=== PATIENT | male | born 1945 | race Caucasian/White ===

== ENCOUNTER 2018-03-06 01:45 | Inpatient (IN) | payer OTHER ==
[2018-03-06 02:33] LABS: Bilirubin Negative (Negative); Blood, Urine Large (Negative); Clarity CLOUDY (Clear); Glucose, Urine (Dipstick) Negative (Negative); Leukocyte Large (Negative); Nitrite Negative (Negative); Protein, Urine (Dipstick) 300 mg/dL (Neg-Trace); Specific Gravity, Urine 1.021 (1.002-1.036); pH, Urine 6.5 (5.0-9.0)
[2018-03-06 02:38] LABS: Bacteria/HPF None Seen HPF (None Seen); Hyaline Casts/LPF 0-3 HYALINE CAST LPF (0-3 Hyaline); Pathc Cast-AUWi Flag 0.58 (0-2.49); Squamous Epithelial 0-3 HPF (0-3); Yeast-AUWi Flag 57.7 (0-25.0)
[2018-03-06 02:55] LABS: Yeast-All Forms None Seen HPF (None Seen)
[2018-03-06 03:13] LABS: #Lymphocytes 0.8 thou/uL (1.20-3.40); #Neutrophils 8.2 thou/uL (1.40-6.50); %Basophils 0.1 % (0.0-1.0); %Eosinophils 0.3 % (0.0-10.0); %Monocytes 9.8 % (0.0-10.0); %Neutrophils 81.8 % (42.0-75.0); Hemoglobin 12.5 g/dL (14.0-18.0); Mean Corpuscular HGB CONC 33.4 g/dL (32.0-36.0); Mean Corpuscular Hemoglobin 28.6 pg (27.0-31.0); Mean Corpuscular Volume 85.6 fL (78.0-98.0); Platelet Count 144 thou/uL (130-400); RBC Distribution Width 14.4 % (11.5-14.5); Red Blood Cell (RBC) Count 4.37 mill/uL (4.70-6.10)
[2018-03-06 03:55] LABS: ALT (SGPT) 9 U/L (8-55); AST (SGOT) 15 U/L (5-34); Albumin 3.6 g/dL (3.4-4.8); Alkaline Phosphatase 94 U/L (40-150); Anion Gap 16 mmol/L (10-20); BUN (Urea Nitrogen) 22 mg/dL (8.4-25.7); Calc. Creatinine Clearance 0 mL/min (70-130); Carbon Dioxide 21 mmol/L (23-31); Chloride 103 mmol/L (98-107); Estimated GFR-MDRD 52; Globulin 4.1 g/dL (2.4-3.5); Glucose 128 mg/dL (83-110); Potassium 3.7 mmol/L (3.5-5.1); Protein, Total 7.7 g/dL (5.8-8.1); Sodium 136 mmol/L (136-145)
[2018-03-06] MEDS ORDERED: cefTRIAXone\\ROCEPHIN 1 GM VIAL ONE (04:07)
--- NOTE | 2018-03-06 05:10 | PDOC.FPRHP ---
- History of Present Illness Chief Complaint: Word-finding difficulty, confusion History of Present Illness: 72 yo M from detention coming from [facility]. Patient was found in the shower last night and was refusing to get off the floor, was having word-finding difficulty and was confused. He has a recent history of being admitted for sepsis 2/2 to UTI and has a right nephrostomy tube in place. His speech was clear, but he continues to have word-finding difficulty. He has a difficult time giving his history, but reports hx of T2DM, HTN, atrial fib, and gout. States his right great toe is in pain. Patient reports feeling feverish, decrease appetite, cough , intermittent SOB. Denies chest pain/palpitations/nausea/vom/constipation/ diarrhea/GI bleeding. Patient is a poor historian, he could not report anything about his recent hospital admission. Per the ER note, patient states that the facility was not giving him his keflex, and facility reports that he was refusing to take his keflex. In the ED, CT of his head showed subacute infarct. He was given 2500 ml NS, as well as vancomycin, rocephin 1 g, and ASA 325 mg. - Allergies/Adverse Reactions Allergies Allergy/AdvReac Type Severity Reaction Status Date / Time No Known Allergies Allergy Unverified 03/06/18 05:22 - History PMHx: Difficult to obtain from patient. Recent history of sepsis 2/2 UTI. Patient reports T2DM, HTN, "afib on the left side, v-fib on the right," gout PSHx: nephrostomy tube FHx: Cardiac- father with SD, HTN, Cancer (unknown) in mother, DM both parents Social: denies tobacco, alcohol, or drug use. Imprisoned. - Review of Systems ROS unobtainable: other (Difficult to obtain from patient due to word-finding difficulty) General: reports: fever/chills Eyes: denies: eye pain, vision changes ENT: denies: nasal congestion, rhinorrhea Respiratory: reports: cough, shortness of breath. denies: congestion Cardiovascular: denies: chest pain, palpitation, edema Gastrointestinal: denies: nausea, vomiting, diarrhea, constipation, abdominal pain, GI bleeding Genitourinary: denies: dysuria Skin: denies: rashes, lesions Musculoskeletal: reports: pain (Right great toe). denies: stiffness, swelling Neurological: denies: numbness, weakness Psychological: denies: anxiety, depression, other (denies other psych history) - Vital signs BP: [138/76] HR: [97] RR: [16] Tmax: [99.7] Pox: [95%]% on [RA] Wt: [113 kg] - Physical Exam Constitutional: NAD, well developed HEENT: normocephalic and atraumatic, PERRLA, EOMI, grossly normal vision, grossly normal hearing, MMM, oropharynx clear Neck: supple -Neck: +LAD Heart: RRR, normal S1/S2 Lungs: CTAB, no respiratory distress, no wheezing Abdomen: soft, non-tender, bowel sounds present, no masses/distention Musculoskeletal: normal structure -Musculoskeletal: Right great toe very TTP, no erythema appreciated Neurological: CN II-XII intact -Neurological: Word finding difficulty Skin: no rash/lesions, good turgor, capillary refill <2 seconds Heme/Lymphatic: no unusual bruising or bleeding, no purpura Psychiatric: other (Patient has strange affect, difficulty with word-finding. Concerned that some malingering involved. Patient tries to use medical terms and uses them incorrectly.) FMR H&P: Results - Labs Result Diagrams: 03/06/18 02:53 03/06/18 02:53 Lab results: WBC 10.0 thou/uL (4.8-10.8) 03/06/18 02:53 Hgb 12.5 g/dL (14.0-18.0) L 03/06/18 02:53 Hct 37.4 % (42.0-52.0) L 03/06/18 02:53 MCV 85.6 fL (78.0-98.0) 03/06/18 02:53 Plt Count 144 thou/uL (130-400) 03/06/18 02:53 Neutrophils % 81.8 % (42.0-75.0) H 03/06/18 02:53 Sodium 136 mmol/L (136-145) 03/06/18 02:53 Potassium 3.7 mmol/L (3.5-5.1) 03/06/18 02:53 Chloride 103 mmol/L (98-107) 03/06/18 02:53 Carbon Dioxide 21 mmol/L (23-31) L 03/06/18 02:53 BUN 22 mg/dL (8.4-25.7) 03/06/18 02:53 Creatinine 1.35 mg/dL (0.7-1.3) H 03/06/18 02:53 Glucose 128 mg/dL (83-110) H 03/06/18 02:53 Lactic Acid 3.1 mmol/L (0.5-2.2) H 03/06/18 02:53 Calcium 10.0 mg/dL (7.8-10.44) 03/06/18 02:53 Total Bilirubin 3.0 mg/dL (0.2-1.2) H 03/06/18 02:53 AST 15 U/L (5-34) 03/06/18 02:53 ALT 9 U/L (8-55) 03/06/18 02:53 Alkaline Phosphatase 94 U/L (40-150) 03/06/18 02:53 Serum Total Protein 7.7 g/dL (5.8-8.1) 03/06/18 02:53 Albumin 3.6 g/dL (3.4-4.8) 03/06/18 02:53 Urine Ketones 15 mg/dL (Negative) H 03/06/18 02:00 Urine Blood Large (Negative) H 03/06/18 02:00 Urine Nitrite Negative (Negative) 03/06/18 02:00 Ur Leukocyte Esterase Large (Negative) H 03/06/18 02:00 Urine RBC 11-20 HPF (0-3) H 03/06/18 02:00 Urine WBC Greater Than 50-TNTC HPF (0-3) H 03/06/18 02:00 Ur Squamous Epith Cells 0-3 HPF (0-3) 03/06/18 02:00 Urine Bacteria None Seen HPF (None Seen) 03/06/18 02:00 FMR H&P: A/P - Problem List (1) UTI (urinary tract infection) Current Visit: Yes Status: Acute (2) Acute encephalopathy Current Visit: Yes Status: Acute Code(s): G93.40 - ENCEPHALOPATHY, UNSPECIFIED (3) HTN (hypertension) Current Visit: Yes Status: Chronic Code(s): I10 - ESSENTIAL (PRIMARY) HYPERTENSION (4) Elevated bilirubin Current Visit: Yes Status: Acute Code(s): R17 - UNSPECIFIED JAUNDICE (5) Gout Current Visit: Yes Status: Acute Code(s): M10.9 - GOUT, UNSPECIFIED (6) Diabetes type 2, uncontrolled Current Visit: Yes Status: Chronic Code(s): E11.65 - TYPE 2 DIABETES MELLITUS WITH HYPERGLYCEMIA (7) Constipation Current Visit: Yes Status: Chronic Code(s): K59.00 - CONSTIPATION, UNSPECIFIED - Plan 72 yo M presents with concern for stroke and UTI #UTI s/p nephrostomy placement -UTI present, patient has not been taking antibiotic since discharge -Pulse >90, other vitals WNL. -In ED: given 2500 ml NS, as well as vancomycin, rocephin 1 g -LA 3.1 -Pus on nephrostomy tube, culture drawn -Blood cultures drawn and pending -Urine culture and G stain pending -Continue on vanc and rocephin -request records -strict I/Os #Acute Encephalopathy, possibly 2/2 Stroke -Ct head +, report pending -MRA pending, NPO until then -Admit to Stroke Obs -NIH of 1, due to word finding difficulties -Cardiac echo -lipid panel pending #HTN -Carvedilol, furosemide -Patient possibly has heart failure, request records #Elevated bilirubin -Fractionated bili pending -LFTs normal #Gout -Tylenol for pain -Patient has a slight elevation in his Creatinine, so holding NSAIDS at this time #DMT2 -glipizide -SSI #Constipation -docusate #GERD -Ranitidine Dispo: >2 midnights Diet: NPO until after MRA Ppx: lovenox FMR H&P: Upper Level - Pertinent history 72M with history of recent nephrostomy tube placed for nephrolithiasis present for altered mentation. He is unreliable historian, saying things such as "I have afib in the right heart and vfib in the left heart". He was seen at approximately 2100 hour the previous day on the ground, unknown when seen last normal. He was found to be altered in speech. [facility] bed was full so he was brought to [facility]. In ER, he had CT, official read pending, that shows possible rt. occipital hypoechogenic area, possibly representing a stroke. He was seen to have pus in his nephrostomy tube and UA found 50+ WBC with LE. He was noted to have isolated hyperbilirubinemia without elevated LFT. He incidentally complained of great right toe pain. - Pertinent findings Gen: Awake, grossly oriented but nonsensical at time HEENT: Normocephalic. Nystagmus with leftward gaze. Midline trachea. CV: RRR with no m/g/r Resp: CTA bilat GI: Normoactive, not tender Ext: No edema Neuro: Limited due to patient being in restraint. Normal tone. No focal weakness Msk: Pain on palpation of right great toe : Nephrostomy tube now draining clear urine Derm: Mild redness around nephrostomy site - Plan Date/Time: 03/06/18 0510 I, [Kd Hutchison], have evaluated this patient and agree with findings/plan as outlined by internal control consultant resident. Pertinent changes/additions are listed here. 1. CVA/TIA: - Await official read - Lipid, MRA head/neck, cardiac echo - Optimize medical management with statin, aspirin as appropriate - Permissive HTN for today, BP control tomorrow - Patient has no obvious lesion besides nystagmus. Consider that CT scan may have reflected old stroke, unrelated to today's visit 2. UTI - UA positive. Culture and gram stain pending - Start on ceftriaxone and vanc. - May account for unusual behavior 3. Acute Gout - Elevated uric acid from 2 days prior and history/physical suggest gout - Has increased Cr, so will go with tylenol for now, may start NSAID when kidney function improved 4. Isolated hyperbilirubinemia - Ordered fractionated bilirubin - LFT normal and no pain, so infectious etiology/obstruction is less likely 5. DM2, HTN, GERD - Continue home medication
[2018-03-06] MEDS ORDERED: Gentamicin Sulfate 415 MG in Sodium Chloride 0.9% 100 ML IVPB SCH (05:30)
[2018-03-06] MEDS ORDERED: Vancomycin HCl 1.5 GM in Sodium Chloride 0.9% 250 ML 300 ML IVPB SCH (05:45)
[2018-03-06] MEDS ORDERED: SODIUM CHLORIDE 0.9% IVPB SCH (07:00)
[2018-03-06] MEDS ORDERED: GENTAMICIN SULFATE IVPB SCH (07:00)
[2018-03-06] MEDS ORDERED: Dextrose 5% in Water 1,000 ML IV PRN (07:29)
[2018-03-06] MEDS ORDERED: Dextrose 50% Abboject 50 ML SYRINGE SLOW IVP PRN (07:29)
[2018-03-06] MEDS ORDERED: cefTRIAXone Sodium 1 MG in Syringe 0 ML IVPB SCH (07:29)
[2018-03-06] MEDS ORDERED: Acetaminophen 325 MG TAB PO PRN (07:29)
[2018-03-06] MEDS ORDERED: Calcium Carbonate 500 MG ChewTAB PO PRN (07:29)
[2018-03-06 08:42] LABS: Lactic Acid 1.2 mmol/L (0.5-2.2)
[2018-03-06 08:48] LABS: Bilirubin, Direct 0.9 mg/dL (0.1-0.3); Bilirubin, Total 1.7 mg/dL (0.2-1.2)
[2018-03-06 09:17] VITALS: BMI 32.5
--- NOTE | 2018-03-06 09:20 | CT ---
PRELIMINARY REPORT/[facility]/EMERGENCY AFTER HOURS PROCEDURE: EXAM: CT Head Without Contrast EXAM DATE/TIME: 03/06/2018 2:26 AM CLINICAL HISTORY: 72 years old, male; Signs and symptoms; Altered mental status/memory loss; Confusion or disorientatio n; Patient HX: Ams/confusion TECHNIQUE: Axial computed tomography images of the head/brain without contrast. COMPARISON: No relevant prior studies available. FINDINGS: Brain: No acute intracranial hemorrhage or mass effect. There is decreased attenuation in the periventricular white matter, likely from microvascular disease . Large low attenuation area in the left occipital lobe. This may represent an old infarct, a subacute infarct might also be considered, please correlate clinically. Acute infarct, less than 24 hours in a ge, would be unlikely. No definitive acute infarct by CT. MRI could be more sensitive/specific for de tection, and also for distinguishing between old and subacute infarcts, as clinically directed. Ventricles: Ventricle size is normal for age. Bones/joints: No definite acute skull fracture. Sinuses: Included paranasal sinuses are essentially clear. Mastoid air cells: No significant acute finding. Soft tissues: Normal. Vasculature: Vascular calcifications noted in the internal carotid and vertebral basilar systems. IMPRESSION: 1. No acute intracranial bleed or mass effect. 2. Large low attenuation area in the left occipital lobe. This may represent an old infarct, a subacu te infarct might also be considered, please correlate clinically. 3. No definitive acute infarct by CT, see above discussion. Thank you for allowing us to participate in the care of your patient. Dictated and Authenticated by: Efra Anand MD 03/06/2018 3:23 AM Central Time ([place] & [place]) FINAL REPORT EMERGENT AFTER HOURS CT OF THE BRAIN WITHOUT CONTRAST: FINDINGS/IMPRESSION: I agree with the findings and impression given in the preliminary report per [facility] physician. There is confluent hypodensity in the left occipital lobe. This may represent a remote or subacute infarct ion. Correlate with symptoms. MRI of the brain may be necessary for better evaluation. POS: [facility]
[2018-03-06] MEDS: Enoxaparin Sodium 40 MG/0.4 ML SYRINGE SC SCH (09:41)
--- NOTE | 2018-03-06 10:01 | RAD ---
SINGLE VIEW OF THE CHEST: COMPARISON: None. HISTORY: Altered mental status. FINDINGS: Single view of the chest shows a normal sized cardiomediastinal silhouette. There is no evidence of c onsolidation, mass, or pleural effusion. The bones are unremarkable. IMPRESSION: No evidence of acute cardiopulmonary disease. POS: [facility]
--- NOTE | 2018-03-06 14:11 | MRI ---
MRA OF THE NECK WITHOUT CONTRAST: HISTORY: Found lying in shower yesterday unable to get up. Concern for stroke with right-sided weakness. TECHNIQUE: An MRA of the neck was performed without contrast using 2D [id number] imaging. FINDINGS: The common carotid arteries are normal in caliber without obvious irregularity to suggest significant atherosclerotic disease. These branch into normal-caliber internal and external carotid arteries wi thout significant irregularity of the proximal internal carotid arteries. The vertebral arteries are normal in appearance without significant narrowing or irregularity to sugg est atherosclerotic disease. IMPRESSION: No significant carotid or vertebral anomaly in the neck. POS: [facility]
--- NOTE | 2018-03-06 14:24 | MRI ---
MRA MAGNETIC RESONANCE ANGIOGRAM HEAD NONCONTRAST: DATE: 03/06/2018. HISTORY: A 72-year-old male with altered mental status and left occipital lobe infarction. TECHNIQUE: 3D [id number] MRA acquired in multiple axial slabs through the [employer]. Source images a nd 3D MIP reconstructions obtained. FINDINGS: There is decreased signal intensity involving approximately 2 or 3 cm of the length of the left intra cranial vertebral artery. There is good flow-related signal in the P1 segment of the left RADIOLOGY RN. The left P2 segment has decreased signal intensity, and the flow-related signal of the left P3 segment an d distal to it, is absent. There is no left-sided posterior communicating artery. There is a patent right posterior communicati ng artery and an anterior communicating artery. The bilateral carotid siphons; the A1 and A2 segment s, and the M1 segments, of the anterior and middle cerebral arteries, and their proximal branches, de monstrate flow-related signal. Basilar artery and intracranial right vertebral artery, right posteri or cerebral artery, and bilateral superior cerebellar arteries, have flow-related signal proximally. IMPRESSION: 1. Please note that an MRA of the head is considered incomplete without an accompanying MRI of the b rain. 2. Occlusion of the P3 and P4 segments of the left posterior cerebral artery, presumably due to thro mbosis, which is apparently the cause of the left occipital infarction. 3. Attenuation of the signal of a segment of the intracranial left vertebral artery. It is uncertai n whether this represents partial occlusion and narrowing due to thrombosis, or is atherosclerotic st enosis, or artifact. POS: [facility]
[2018-03-06] MEDS: glipiZIDE 5 MG TAB PO SCH (21:56)
[2018-03-07] MEDS: cefTRIAXone\\ROCEPHIN 1 GM in Sodium Chloride 0.9% 100 ML IVPB SCH (05:12)
[2018-03-07 06:34] LABS: #Eosinphils 0.1 thou/uL (0.0-0.7); #Lymphocytes 0.8 thou/uL (1.20-3.40); #Monocytes 0.8 thou/uL (0.11-0.59); #Neutrophils 6.2 thou/uL (1.40-6.50); %Basophils 0.1 % (0.0-1.0); %Eosinophils 0.8 % (0.0-10.0); %Lymphocytes 10.1 % (21.0-51.0); %Monocytes 9.7 % (0.0-10.0); %Neutrophils 79.3 % (42.0-75.0); Hemoglobin 9.8 g/dL (14.0-18.0); Mean Corpuscular Volume 84.8 fL (78.0-98.0); Mean Platelet Volume 10.4 fL (7.4-10.4); Platelet Count 142 thou/uL (130-400); RBC Distribution Width 14.4 % (11.5-14.5); Red Blood Cell (RBC) Count 3.49 mill/uL (4.70-6.10); White Blood Cell (WBC) Count 7.8 thou/uL (4.8-10.8)
[2018-03-07 06:49] LABS: Cardiac Risk 3.3 (Less than 4.5)
--- NOTE | 2018-03-07 07:17 | HP ---
ADDENDUM: Please see the note from Dr. Ann, for which I agree. The patient was seen, evaluated, examined, and discussed with residents by bedside. HISTORY OF PRESENT ILLNESS: This is a 72-year-old gentleman coming in from senior care in [place] because [facility] System apparently was full and had no beds. Not a good historian. Has a right-sided nephrostomy tube that the patient states was placed 2 months ago, but the ER doctor was able to get some kind of report that recently was in some hospital and was supposed to be on Keflex because of this. It is unclear why it was even placed and it is unclear which hospitalization he had this placed at and what the issue is with the Keflex. It sounds like he is supposed to taking it and was not. It is unclear why. It comes in with altered mental status, some confusion. It sounds like he was found just sitting in the shower and refusing to get up and so they brought him to the emergency room. Some word-finding difficulty, although not actual slurred speech. No other focal neurologic symptoms though. CT of the head showed left parieto-occipital area that looks old and not necessarily new and certainly not acute in the last 24 hours like the symptoms would indicate. Other than that, he is an extremely poor historian. It is unclear if this is from altered mental status or this is baseline. It does sound like maybe he has had some cardiac problems such as atrial fibrillation, but really unclear. PAST MEDICAL HISTORY: All per the residents history and physical. ALLERGIES: ALL PER THE RESIDENTS HISTORY AND PHYSICAL. MEDICATIONS: All per the residents history and physical. REVIEW OF SYSTEMS: All per the residents history and physical. PHYSICAL EXAMINATION: GENERAL: On exam, no apparent distress. Not slurring speech, but had a hard time in really answering questions at times, seems a little bit confused. Often had his eyes closed and some word-finding difficulty. Could not remember names of cities where he is from and things like that. Could not remember what city he is now living in senior care. Could not remember what hospital he was in, things like that. No other focal neurologic symptoms. HEENT: Conjunctivae are not pale. Sclerae are anicteric. Oropharynx is clear, moist. NECK: No lymphadenopathy, thyromegaly, or bruits. CHEST: Clear. CARDIAC: Regular rate and rhythm currently. EXTREMITIES: Show no edema. Any touching of the feet, he cries out in pain, but especially around the right great toe, although no major joint effusion or erythema. NEUROLOGIC: Difficult as he just did not want to cooperate or understand what I was asking him to and then he is also in the zip-ties from the senior care, but could squeeze both hands equally. Again, really was not cooperating on the lower extremity exam. LABORATORY DATA: Lab workup, really not that remarkable. White count, not that elevated, did have dirty urine with nephrostomy tube. ASSESSMENT AND PLAN: 1. Urinary tract infection, we will culture. Get him on antibiotics. 2. Altered mental status ? unfortunately, we do not really know baseline. It is unclear if this is all from the urinary tract infection or if this could represent something like a stroke, although the CT will make it look like it is subacute. We will get an MRI to further evaluate. 3. Numerous other medical problems including hypertension, gout, diabetes. We will continue home medications for those and just kind of watch his mental status. Not a good candidate at all for tPA as this just does not seem like an acute stroke. It is unclear even when these symptoms started. Job ID: [id number]
--- NOTE | 2018-03-07 08:17 | PDOC.FM ---
- Subjective Subjective: 72 yo M seen this morning at bed side. He is resting comfortably, however does not remember the past few days. He complains of b/l ankle pain. Otherwise no complaints, no acute events over night. - Objective MAR Reviewed: Yes Vital Signs & Weight: Vital Signs (12 hours) Temp Pulse Resp BP Pulse Ox 03/07/18 08:00 100.0 F H 97 22 H 186/86 H 96 03/07/18 04:00 100.1 F H 86 19 141/60 H 96 03/07/18 00:47 151/88 H 03/07/18 00:00 99.1 F 88 19 193/84 H 96 03/06/18 20:45 96 Weight Weight 111.901 kg Result Diagrams: 03/07/18 05:23 03/06/18 02:53 <Will Chiu - Last Filed: 03/07/18 08:11> - Objective Vital Signs & Weight: Vital Signs (12 hours) Temp Pulse Resp BP Pulse Ox 03/07/18 08:00 100.0 F H 97 22 H 186/86 H 96 03/07/18 04:00 100.1 F H 86 19 141/60 H 96 03/07/18 00:47 151/88 H 03/07/18 00:00 99.1 F 88 19 193/84 H 96 Weight Weight 111.901 kg Result Diagrams: 03/07/18 05:23 03/06/18 02:53 <Devyn Apple - Last Filed: 03/07/18 09:37> Phys Exam - Physical Examination Constitutional: NAD HEENT: PERRLA, moist MMs Neck: no JVD Respiratory: clear to auscultation bilateral Cardiovascular: RRR, no significant murmur Gastrointestinal: non-tender, no distention, positive bowel sounds Musculoskeletal: no edema TTP and with ROM ankle and 1st toe b/l Neurological: normal sensation, moves all 4 limbs Intention tremor with nose to finger test R worse than L Psychiatric: A&O x 3 Skin: no rash, normal turgor <Will Chiu - Last Filed: 03/07/18 08:11> Dx/Plan (1) CVA (cerebral vascular accident) Code(s): I63.9 - CEREBRAL INFARCTION, UNSPECIFIED Status: Acute Qualifiers: CVA mechanism: thrombosis Precerebral and cerebral artery: posterior cerebral artery Laterality of affected vessel: left Qualified Code(s): I63.332 - Cerebral infarction due to thrombosis of left posterior cerebral artery (2) Acute encephalopathy Code(s): G93.40 - ENCEPHALOPATHY, UNSPECIFIED Status: Resolved (3) Elevated bilirubin Code(s): R17 - UNSPECIFIED JAUNDICE Status: Acute (4) Gout Code(s): M10.9 - GOUT, UNSPECIFIED Status: Acute Qualifiers: Presence of tophus: without tophus (5) Diabetes type 2, uncontrolled Code(s): E11.65 - TYPE 2 DIABETES MELLITUS WITH HYPERGLYCEMIA Status: Chronic (6) HTN (hypertension) Code(s): I10 - ESSENTIAL (PRIMARY) HYPERTENSION Status: Chronic - Plan Plan: 1. Acute L posterior cerebral artery CVA - Patient is improving, though does appear to have persistent cerebellar deficiency. - Start Lipitor - Questionable hx of afib. Patient states that he may have been told that in the past, however [facility] unit does not have that hx. NSR during hospitalization thus far. - consider starting plavix, will wait for neuro recommendations - echo shows EF of 55-60 and dCHF, otherwise no obvious source of thrombus 2. HTN - restart home meds this am 3. Hx of Gout - possibly having gout flair at this time, uric acid pending - consider starting indomethacin 4. L nephrostomy tube - secondary to previous obstructing stone. Placed on 02/13 - urine clear at this time. Plan to dc abx 5. Hyperbilirubinemia - improved, however still elevated. All other LFT are WNL. Possible [place] 6. GERD - home meds 7. DM2 - home meds - low carb diet - accucheck achs - controlled BG 8. ISMAEL - likely dt low volume, repeat BMP pending. Dispo: Patient is currently stable, work to maximize medical management. Likely ready to dc tomorrow <Will Chiu - Last Filed: 03/07/18 08:11> Attending Addendum - Attending Addendum Date/Time: 03/07/18 7508 I personally evaluated the patient and discussed the management with Dr. Chiu. I agree with the History, Examination, Assessment and Plan documented above with any addition or exceptions noted below. Patient denies complaints this morning but reports he does not remember much over the last few days. MRA showed thrombosis and possible cerebral infarct. MRI brain pending. Neuro consult as well as stroke team. Await their recommendations on need for possible DAPT. Starting statin therapy. Continue Rocephin until cultures result as PCT elevated somewhat. <Devyn Apple - Last Filed: 03/07/18 09:37>
[2018-03-07] MEDS: Acetaminophen 325 MG TAB PO SCH (09:34)
[2018-03-07] MEDS: Furosemide 40 MG TAB PO SCH (09:34)
[2018-03-07] MEDS: glipiZIDE 5 MG TAB PO SCH ×2 (09:34→20:58)
[2018-03-07] MEDS: Carvedilol 6.25 MG TAB PO SCH (09:35)
[2018-03-07] MEDS: Aspirin 81 mg Enteric Coated Tablet PO SCH (09:35)
[2018-03-07] MEDS: Docusate 100 MG CAP PO SCH (09:35)
[2018-03-07] MEDS: Enoxaparin Sodium 40 MG/0.4 ML SYRINGE SC SCH (09:36)
[2018-03-07 11:12] LABS: Anion Gap 16 mmol/L (10-20); BUN (Urea Nitrogen) 19 mg/dL (8.4-25.7); Calc. Creatinine Clearance 104 mL/min (70-130); Carbon Dioxide 20 mmol/L (23-31); Chloride 103 mmol/L (98-107); Estimated GFR-MDRD 71; Glucose 70 mg/dL (83-110); Potassium 3.2 mmol/L (3.5-5.1); Sodium 136 mmol/L (136-145); Uric Acid 7.3 mg/dL (3.5-7.2)
[2018-03-07] MEDS ORDERED: Indomethacin 25 mg Capsule PO SCH (15:45)
[2018-03-07] MEDS ORDERED: Clopidogrel Bisulfate 75 MG TAB PO SCH (16:30)
--- NOTE | 2018-03-07 19:51 | MRI ---
MRI BRAIN: 03/07/2018 PROVIDED CLINICAL HISTORY: Stroke. COMPARISON: CT examination dated 03/06/2018. FINDINGS: The ventricular system appears unchanged in size and morphology. There is confluent signal alteratio n on fluid-sensitive sequences, involving the medial aspect of the left occipital lobe, extending int o the splenium of the corpus callosum, left of midline. Similar foci of signal alteration are seen w ithin the left thalamus and the left centrum semiovale, anteriorly. These demonstrate corresponding restricted diffusion. There are, additionally, areas of somewhat punctate FLAIR and T2 signal altera tion involving the cerebral white matter bilaterally, near the vertex, which demonstrate increased si gnal intensity on the diffusion weighted image, but not definitely diffusion restriction on the ADC m ap. There is diminished signal intensity on the gradient echo sequence involving the left occipital signa l abnormality, suggesting associated petechial hemorrhage. There is no evidence for a mass-producing hemorrhage. Appropriate flow voids are seen within the major intracranial vessels. The extracranial soft tissues and calvarial marrow signal appear unremarkable. IMPRESSION: Findings compatible with recent infarction involving the left occipital lobe, left corpus callosum, l eft thalamus, and left central semiovale, as described above. Signal alteration involving the occipi thony component of this infarct demonstrates signal loss on gradient echo images, suggesting associated petechial hemorrhage. POS: [facility]
[2018-03-07] MEDS: Atorvastatin Calcium 40 MG TAB PO SCH (20:58)
[2018-03-07] MEDS: Indomethacin 25 mg Capsule PO SCH (20:58)
[2018-03-08] MEDS: cefTRIAXone\\ROCEPHIN 1 GM in Sodium Chloride 0.9% 100 ML IVPB SCH (04:16)
[2018-03-08 05:46] LABS: #Eosinphils 0.2 thou/uL (0.0-0.7); #Lymphocytes 0.7 thou/uL (1.20-3.40); #Monocytes 0.5 thou/uL (0.11-0.59); #Neutrophils 3.5 thou/uL (1.40-6.50); %Basophils 0.2 % (0.0-1.0); %Eosinophils 3.5 % (0.0-10.0); %Lymphocytes 15.1 % (21.0-51.0); %Monocytes 9.3 % (0.0-10.0); %Neutrophils 71.9 % (42.0-75.0); Hemoglobin 9.9 g/dL (14.0-18.0); Mean Corpuscular HGB CONC 32.6 g/dL (32.0-36.0); Mean Corpuscular Hemoglobin 27.7 pg (27.0-31.0); Mean Corpuscular Volume 84.9 fL (78.0-98.0); Mean Platelet Volume 10.1 fL (7.4-10.4); Platelet Count 130 thou/uL (130-400); RBC Distribution Width 14.1 % (11.5-14.5); Red Blood Cell (RBC) Count 3.57 mill/uL (4.70-6.10); White Blood Cell (WBC) Count 4.9 thou/uL (4.8-10.8)
--- NOTE | 2018-03-08 07:29 | PDOC.FM ---
- Subjective Subjective: Patient seen at bedside this morning, resting comfortably. No concerns over night. No new symptoms. Complains of continued ankle pain. - Objective MAR Reviewed: Yes Vital Signs & Weight: Vital Signs (12 hours) Temp Pulse Resp BP Pulse Ox 03/08/18 04:00 97.5 F L 64 18 136/75 98 03/08/18 00:00 97.4 F L 68 19 136/73 98 03/07/18 20:55 97 03/07/18 20:00 98.6 F 72 18 133/70 97 Weight Admit Weight 111.901 kg Weight 111.901 kg I&O: 03/07/18 03/08/18 03/09/18 06:59 06:59 06:59 Intake Total 920 Output Total 400 Balance 520 Result Diagrams: 03/08/18 04:58 03/07/18 05:23 <Will Chiu - Last Filed: 03/08/18 07:27> - Objective Vital Signs & Weight: Vital Signs (12 hours) Temp Pulse Resp BP BP Pulse Ox 03/08/18 08:59 149/83 H 03/08/18 08:00 99.1 F 67 20 149/83 H 99 03/08/18 04:00 97.5 F L 64 18 136/75 98 03/08/18 00:00 97.4 F L 68 19 136/73 98 Weight Admit Weight 111.901 kg Weight 111.901 kg I&O: 03/07/18 03/08/18 03/09/18 06:59 06:59 06:59 Intake Total 920 Output Total 400 Balance 520 Result Diagrams: 03/08/18 04:58 03/08/18 04:52 <Devyn Apple - Last Filed: 03/08/18 09:43> Phys Exam - Physical Examination Constitutional: NAD HEENT: moist MMs Neck: no JVD Respiratory: clear to auscultation bilateral Cardiovascular: RRR, no significant murmur ( ) Gastrointestinal: non-tender, no distention Musculoskeletal: no edema Neurological: normal sensation, moves all 4 limbs Psychiatric: A&O x 3 Deviation from normal: Tremor with finger to nose test Skin: no rash <Will Chiu - Last Filed: 03/08/18 07:27> Dx/Plan (1) CVA (cerebral vascular accident) Code(s): I63.9 - CEREBRAL INFARCTION, UNSPECIFIED Status: Acute Qualifiers: CVA mechanism: thrombosis Precerebral and cerebral artery: posterior cerebral artery Laterality of affected vessel: left Qualified Code(s): I63.332 - Cerebral infarction due to thrombosis of left posterior cerebral artery (2) Acute encephalopathy Code(s): G93.40 - ENCEPHALOPATHY, UNSPECIFIED Status: Resolved (3) Elevated bilirubin Code(s): R17 - UNSPECIFIED JAUNDICE Status: Acute (4) Gout Code(s): M10.9 - GOUT, UNSPECIFIED Status: Acute Qualifiers: Presence of tophus: without tophus (5) Diabetes type 2, uncontrolled Code(s): E11.65 - TYPE 2 DIABETES MELLITUS WITH HYPERGLYCEMIA Status: Chronic (6) HTN (hypertension) Code(s): I10 - ESSENTIAL (PRIMARY) HYPERTENSION Status: Chronic (7) V-tach Code(s): I47.2 - VENTRICULAR TACHYCARDIA Status: Acute (8) UTI (urinary tract infection) Status: Acute - Plan Plan: 1. Acute L posterior cerebral artery CVA - Appears to be stable at this time and may be marginally improving. Pt needed max assist, however this may be related to restraints. Plan to clarify to help with needs post discharge. Patient was seen by Dr Rondon yesterday who started him on Plavix - Continue Lipitor - Questionable hx of afib. Has been in NSR with the exception of 15 beats of VTAC yesterday. Will consider cardiology consult for possible outpatient monitoring. - echo shows EF of 55-60 and dCHF, otherwise no obvious source of thrombus - MRI shows finding c/w L occipital CVA with petechial hemorrhage. 2. VTAC - tele shows couplets with PVCs followed by 15 beats of VTAC. The entire episode lasted about 30 sec and was asymptomatic throughout. 3. UTI w/R nephrostomy - secondary to previous obstructing stone. Placed on 02/13 - MRSA grown from tubes, changing abx to doxy. Will need outpatient f/u with urology 4. HTN - home meds 5. Hx of Gout - elevated uric acid. Starting indomethacin 6. Hyperbilirubinemia - improved, however still elevated. All other LFT are WNL. Possible [place] 7. GERD - home meds 7. DM2 - home meds - low carb diet - accucheck achs - controlled BG 8. ISMAEL - likely dt low volume, repeat BMP pending. Dispo: Patient is currently stable, work to maximize medical management. Likely ready to dc in next 24-48 hours pending specialist recommendation <Will Chiu - Last Filed: 03/08/18 07:27> Attending Addendum - Attending Addendum Date/Time: 03/08/18941 I personally evaluated the patient and discussed the management with Dr. Chiu. I agree with the History, Examination, Assessment and Plan documented above with any addition or exceptions noted below. Patient here for what appears to be acute onset CVA. Neurology on board, has added PLavix. Awaiting further recommendations. He had an episode of Vtach overnight and will consult cardiology. Therapy services on board, anticipate discharge with possible [facility]. <Devyn Apple - Last Filed: 03/08/18 09:43>
[2018-03-08 07:59] LABS: Anion Gap 12 mmol/L (10-20); BUN (Urea Nitrogen) 25 mg/dL (8.4-25.7); Calc. Creatinine Clearance 95 mL/min (70-130); Calcium 9.2 mg/dL (7.8-10.44); Carbon Dioxide 25 mmol/L (23-31); Chloride 105 mmol/L (98-107); Estimated GFR-MDRD 64; Glucose 93 mg/dL (83-110); Magnesium 1.8 mg/dL (1.6-2.6); Potassium 3.1 mmol/L (3.5-5.1); Sodium 139 mmol/L (136-145)
[2018-03-08] MEDS: Furosemide 40 MG TAB PO SCH (08:58)
[2018-03-08] MEDS: Doxycycline 100 MG CAP PO SCH ×2 (08:58→23:12)
[2018-03-08] MEDS: glipiZIDE 5 MG TAB PO SCH ×2 (08:58→23:12)
[2018-03-08] MEDS: Potassium Chloride 20 MEQ TAB PO SCH ×2 (08:58→18:00)
[2018-03-08] MEDS: Carvedilol 6.25 MG TAB PO SCH (08:59)
[2018-03-08] MEDS: Indomethacin 25 mg Capsule PO SCH ×3 (08:59→23:12)
[2018-03-08] MEDS: Aspirin 81 mg Enteric Coated Tablet PO SCH (08:59)
[2018-03-08] MEDS: Acetaminophen 325 MG TAB PO SCH (08:59)
[2018-03-08] MEDS: Enoxaparin Sodium 40 MG/0.4 ML SYRINGE SC SCH (09:00)
[2018-03-08] MEDS: Docusate 100 MG CAP PO SCH (09:00)
[2018-03-08] MEDS: Clopidogrel Bisulfate 75 MG TAB PO SCH (09:00)
--- NOTE | 2018-03-08 12:13 | PQF ---
DATE: 03-08-18 ATTN: DR. KRISTIN JEAN BAPTISTE Please exercise your independent, professional judgment in responding to the clarification form. Clinical indicators are provided on the bottom of this form for your review Please check appropriate box(s): [x ] Encephalopathy: Type: [ x ] Acute [ ] Subacute [ ] Chronic Etiology: [ x ] Metabolic [ ] Toxic [ ] Other (please specify) [ x ] Transient Alteration of Awareness [ x ] Other diagnosis CVA [ ] Unable to determine In addition, please specify: Present on Admission (POA): [ x ] Yes [ ] No [ ] Unable to determine For continuity of documentation, please document condition throughout progress notes and discharge summary. Thank You. CLINICAL INDICATORS - SIGNS / SYMPTOMS / LABS ER: REPORTS CONFUSION, EVALUATION OF MENTAL STATUS CHANGES ER DX: STROKE, ELEVATED LACTIC ACID, EXPRESSIVE APHASIA, UTI H&P: ACUTE ENCEPHALOPATHY RISK FACTORS: H&P: RECENTLY ADMITTED WITH SEPSIS 2/2 TO UTI, FROM [facility] HAVING WORD FINDING DIFFICULTY AND CONFUSED TREATMENTS: NEUROLOGY CONSULT 03-07-18 MAR: FREDDY (This form is maintained as a part of the permanent medical record) 2014 [employer]. All Rights Reserved TAQUERIA [email or web address] Office: [phone] [facility]
[2018-03-08] MEDS: HumaLOG 300 UNITS/3 ML VIAL SC PRN ×2 (12:14→17:59)
[2018-03-08] MEDS ORDERED: Magnesium 2 GM/50 ML 2 GM in Premix Bag 1 BAG IVPB SCH (12:45)
[2018-03-08 17:38] LABS: Troponin I Less than 0.010 ng/mL (< 0.028)
--- NOTE | 2018-03-08 19:23 | CON ---
DATE OF CONSULTATION: TYPE OF CONSULTATION: Cardiology. Room# 208. REASON FOR CARDIOLOGY CONSULT: Fifteen beats of nonsustained SVT. HISTORY OF PRESENT ILLNESS: Mr. Arguello is 72 years old male from [facility]. He is a prisoner. He was transferred from [facility] to our hospital for confusion and alert mental status. The patient was found to have acute left posterior cerebral artery CVA. The patient's condition is stable at this moment. The patient was almost discharged from the hospital. However, the patient had 15 beats of nonsustained SVT around 03:43 on March 08, 2018. Cardiology consult was ordered. According to the telemetry record, the patient has not had anymore similar episodes since then, however, he continued having occasional PVCs. The patient was asymptomatic during the episode. The patient's vital signs are stable. The patient is already receiving magnesium and potassium replacement for magnesium level 1.8, potassium 3.1 today. The patient denies any shortness of breath, discomfort, fluttering, or palpitations in his chest or any other cardiac complaints prior to this admission and during the episode. The patient has a history of right bundle branch block. He was seen by payroll technician about 20 years ago with stress test and echo which was normal. The patient has a history of UTI with right nephrostomy tube in place, however, it got infected with MRSA infection. Antibiotic was changed to doxycycline, which is managed by the patient's primary care doctor and urologist. PAST MEDICAL HISTORY: UTI, type 2 diabetes, hypertension, right bundle branch block, and gout. PAST SURGICAL HISTORY: Nephrostomy tube. FAMILY HISTORY: The patient's father had a history of [place] and hypertension. The patient's mother had a history of cancer, both had diabetes. SOCIAL HISTORY: The patient denies tobacco, ETOH, or drug abuse. ALLERGIES: THE PATIENT HAS NO KNOWN DRUG ALLERGIES. MEDICATIONS: 1. Multivitamin one tablet once a day. 2. Glipizide 5 mg twice a day. 3. Lasix 40 mg once a day. 4. Keflex 500 mg 3 times a day. 5. Zinc 50 mg twice a day. 6. Carvedilol 12.5 mg once a day. 7. Vitamin C 1000 mg twice a day. 8. Zantac 150 mg once a day. 9. Colace 100 mg once a day. 10. Tylenol 650 mg once a day. REVIEW OF SYSTEMS: A 12-point review of systems negative unless otherwise mentioned in the HPI. PHYSICAL EXAMINATION: VITAL SIGNS: Blood pressure 140/77, temperature 97.6, pulse 71, respiratory rate 16, O2 96% on room air. GENERAL: The patient is alert, oriented x4, but is really forgetful, some events the patient cannot recall, but not in acute distress. HEENT: Head; normocephalic, atraumatic. Eyes; extraocular muscle movements are intact. ENT and mouth, oral and nasal mucosa are moist without lesions. NECK: No JVD, normal range of motion. Carotid pulses are present without bruit or thrill. RESPIRATORY: Clear to auscultation bilaterally. No wheezing, rales, or rhonchi noted. CARDIOVASCULAR: Regular rate and rhythm. Normal S1, S2. No S3, S4. No significant murmurs, heaves, or thrill noted. 2+ pulses in the upper and lower extremities. No edema. ABDOMEN: Nontender. No masses palpated. Bowel sounds are present. MUSCULOSKELETAL: The patient able to move all extremities at this moment, but is really hard to observe due to restraints. SKIN: Warm and dry. No bruise, lesion, or rash noted. PSYCHIATRIC: The patient's mood is appropriate. NEUROLOGIC: The patient is alert and oriented x4. Again, the patient is really forgetful and nonfocal. LABORATORY DATA: WBC 4.9, hemoglobin 9.9, hematocrit 30.3, platelets 130. Sodium 139, potassium 3.1, BUN 25, creatinine 1.13, glucose 93, magnesium 1.8, AST 15, ALT 9. Cholesterol 92, triglycerides 58, HDL 28, LDL 52. Echocardiogram was done on March 06, showed EF 55% to 60%, mildly enlarged bilateral atrium, grade 1 diastolic dysfunction, mild tricuspid regurgitation, and small pericardial effusion. ASSESSMENT AND PLAN: 1. Status post 15 beats of nonsustained ventricular tachycardia. At this moment, the patient is stable. The patient has not had any other episode of nonsustained ventricular tachycardia since then. The patient has been on carvedilol 12.5 mg once a day, aspirin 81 mg once a day. The patient received magnesium and potassium replacement today. We would like to go ahead to order a stress test for this patient for further cardiac evaluation. We would like to continue to monitor on the telemetry. 2. Left posterior cerebral artery cerebrovascular accident. The patient's condition is stable at this moment, which is managed by primary care doctor. 3. Urinary tract infection with nephrostomy. The patient's condition is stable at this moment, again managed by primary care doctor. 4. Hypertension. The patient's blood pressure is stable with current medication. 5. Type 2 diabetes, which is managed by primary care doctor. Thank you for allowing the Cardiology Service to participate in the care of this patient. We will follow along the patient's care team and make further evaluations as appropriate. Job ID: [id number]
--- NOTE | 2018-03-08 23:06 | CON ---
DATE OF CONSULTATION: 03/08/2018 TYPE OF CONSULTATION: Neurology. CONSULTING PHYSICIAN: Dr. Pierre. IMPRESSION: 1. Left occipital lobe stroke resulting in right homonymous field deficit and some memory difficulties secondary to primary thrombosis. 2. Diabetes. PLAN: 1. Aspirin 81 mg per day. 2. Low-dose statin. 3. Continue diabetes management. HOSPITAL COURSE: Mr. Arguello is a 72-year-old man who is an inmate. He developed acute neurologic symptoms and was acting oddly. He was subsequently brought to the emergency room for evaluation. His initial CT scan showed an area of hypodensity involving the left occipital lobe. His EKG showed a normal sinus rhythm with a bundle branch block. He had further workup including an echocardiogram, which showed an ejection fraction of 55%. His MRA showed a left P2 and P3 area of occlusion. Followup MRI of the brain had demonstrated the left occipital lobe infarct with some extension into the left thalamus without any complaints of headache, nausea, vomiting or vertigo. He is scheduled for a stress test. PAST MEDICAL HISTORY: Diabetes. ALLERGIES: NONE REPORTED. SOCIAL HISTORY: He is an inmate. FAMILY HISTORY: Noncontributory. REVIEW OF SYSTEMS: Otherwise negative. PHYSICAL EXAMINATION: GENERAL: He is a well-nourished elderly man in no distress. VITAL SIGNS: Stable. He is afebrile. HEENT: Pupils equal and reactive. Conjunctivae clear. Oropharynx clear. NECK: Supple. EXTREMITIES: No cyanosis. NEUROLOGIC: He is alert and appropriate. His speech is fluent and clear. He had difficulty recalling the name of the unit that he was living in. His cranial nerve exam showed a fairly dense right homonymous visual field deficit. Motor exam showed good prepared foods service team member strength bilaterally. Cerebellar testing showed normal [id number] and rapid alternating movements. Sensations intact to light touch. Gait was not tested. No abnormal movements were seen. IMAGING: Reviewed. SUMMARY: This is a 72-year-old male with diabetes, who suffered a thrombosis of posterior cerebral artery. He is neurologically stable. He can be transferred out when his cardiac workup is completed. Job ID: [id number]
[2018-03-08] MEDS: Atorvastatin Calcium 40 MG TAB PO SCH (23:12)
[2018-03-09 05:03] LABS: #Eosinphils 0.5 thou/uL (0.0-0.7); #Lymphocytes 0.9 thou/uL (1.20-3.40); #Monocytes 0.5 thou/uL (0.11-0.59); #Neutrophils 3.5 thou/uL (1.40-6.50); %Eosinophils 8.4 % (0.0-10.0); %Lymphocytes 17.1 % (21.0-51.0); %Monocytes 9.6 % (0.0-10.0); %Neutrophils 64.9 % (42.0-75.0); Hemoglobin 9.8 g/dL (14.0-18.0); Mean Corpuscular HGB CONC 32.3 g/dL (32.0-36.0); Mean Corpuscular Hemoglobin 27.7 pg (27.0-31.0); Mean Corpuscular Volume 85.8 fL (78.0-98.0); Mean Platelet Volume 9.9 fL (7.4-10.4); Platelet Count 141 thou/uL (130-400); Red Blood Cell (RBC) Count 3.55 mill/uL (4.70-6.10); White Blood Cell (WBC) Count 5.4 thou/uL (4.8-10.8)
[2018-03-09 05:23] LABS: Anion Gap 13 mmol/L (10-20); BUN (Urea Nitrogen) 35 mg/dL (8.4-25.7); Calc. Creatinine Clearance 77 mL/min (70-130); Carbon Dioxide 22 mmol/L (23-31); Chloride 108 mmol/L (98-107); Estimated GFR-MDRD 50; Glucose 83 mg/dL (83-110); Potassium 4.4 mmol/L (3.5-5.1); Sodium 139 mmol/L (136-145)
--- NOTE | 2018-03-09 07:29 | PDOC.FM ---
- Subjective Subjective: Patient seen at bedside this morning resting comfortably. Complains of continued ankle pain, however states that this is improving with the new meds. He denies new or worsening neuro symptoms. - Objective MAR Reviewed: Yes Vital Signs & Weight: Vital Signs (12 hours) Temp Pulse Resp BP Pulse Ox 03/09/18 00:21 97.6 F 69 16 133/75 96 03/08/18 20:45 96 03/08/18 20:29 98.3 F 70 18 138/67 96 Weight Admit Weight 111.901 kg Weight 111.901 kg I&O: 03/08/18 03/09/18 03/10/18 06:59 06:59 06:59 Intake Total 920 720 Output Total 400 Balance 520 720 Result Diagrams: 03/09/18 04:27 03/09/18 04:27 Phys Exam - Physical Examination Constitutional: NAD HEENT: moist MMs Neck: no JVD Respiratory: clear to auscultation bilateral Cardiovascular: no significant murmur Gastrointestinal: non-tender, no distention, positive bowel sounds Musculoskeletal: no edema Mild TTP b/l ankles. Full ROM Neurological: normal sensation, moves all 4 limbs Improved nose to finger test Psychiatric: A&O x 3 Skin: no rash Dx/Plan (1) CVA (cerebral vascular accident) Code(s): I63.9 - CEREBRAL INFARCTION, UNSPECIFIED Status: Acute Qualifiers: CVA mechanism: thrombosis Precerebral and cerebral artery: posterior cerebral artery Laterality of affected vessel: left Qualified Code(s): I63.332 - Cerebral infarction due to thrombosis of left posterior cerebral artery (2) Acute encephalopathy Code(s): G93.40 - ENCEPHALOPATHY, UNSPECIFIED Status: Resolved (3) Elevated bilirubin Code(s): R17 - UNSPECIFIED JAUNDICE Status: Acute (4) Gout Code(s): M10.9 - GOUT, UNSPECIFIED Status: Acute Qualifiers: Presence of tophus: without tophus (5) Diabetes type 2, uncontrolled Code(s): E11.65 - TYPE 2 DIABETES MELLITUS WITH HYPERGLYCEMIA Status: Chronic (6) HTN (hypertension) Code(s): I10 - ESSENTIAL (PRIMARY) HYPERTENSION Status: Chronic (7) V-tach Code(s): I47.2 - VENTRICULAR TACHYCARDIA Status: Acute (8) UTI (urinary tract infection) Status: Acute (9) ISMAEL (acute kidney injury) Code(s): N17.9 - ACUTE KIDNEY FAILURE, UNSPECIFIED Status: Acute - Plan Plan: 1. Acute L posterior cerebral artery CVA - Patient improving and appears to be back at baseline - Patient now on Plavix and Lipitor - echo shows EF of 55-60 and dCHF, otherwise no obvious source of thrombus - MRI shows finding c/w L occipital CVA with petechial hemorrhage. - Patient may need outpatient rehab, which will affect discharge location. Will ask PT to eval again today 2. VTAC - 15 beats of VTAC on 03/08, NSR since. - Cardiology plans to stress today 3. UTI w/R nephrostomy - secondary to previous obstructing stone. Placed on 02/13 - MRSA grown from tubes, changing abx to doxy. Will need outpatient f/u with urology 4. ISMAEL - likely related to decreased PO intake. - IVF and recheck in am 5. HTN - home meds 6. Gout - elevated uric acid. - Improving symptoms on indomethacin 6. Hyperbilirubinemia - Possible [place], no jaundice or icterus 7. GERD - home meds 7. DM2 - home meds - low carb diet - accucheck achs - controlled BG Dispo: Patient is currently stable and will be ready to discharge pending stress results and placement. Addendum - Attending - Attending Attestation Date/Time: 03/09/18 6721 I personally evaluated the patient and discussed the management with Dr. Chiu. I agree with the History, Examination, Assessment and Plan documented above with any addition or exceptions noted below. Patient stable from neurological standpoint. Continue ASA and Plavix for CVA. Awaiting stress test results and further recs from Cardiology regarding his episode of Vtach. Continue beta pao. Anticipate discharge back to [facility] but will need to clarify therapy needs with PT today.
--- NOTE | 2018-03-09 07:39 | CON ---
DATE OF CONSULTATION: ADDENDUM: INDICATION FOR CONSULTATION: A 72-year-old gentleman with a short run of supraventricular tachycardia. HISTORY OF PRESENT ILLNESS: This very unfortunate 72-year-old gentleman presented 2 days ago after suffering a CVA. He was transferred from [facility], I believe, in [place] or from a facility where he is incarcerated due to confusion and mental status changes and was found to have a left posterior cerebral artery infarct. He was doing relatively well until he had a short run of nonsustained ventricular tachycardia earlier today and a Cardiology consult was actually requested. He has had no previous cardiac history that I can determine. He did say he saw somebody many years ago, almost 20 years ago and had stress testing and echo, which was unremarkable. He did have an echocardiogram also yesterday here in the hospital, which showed a normal ejection fraction with evidence of probable diastolic dysfunction, but no other significant abnormalities. He has a right bundle-branch block, but had no other significant abnormalities from a cardiac standpoint. He denies any chest pain. He had no shortness of breath and otherwise has been doing relatively well from a cardiac standpoint. PAST MEDICAL HISTORY: Please refer to the notes dictated by my nurse practitioner. SOCIAL HISTORY: Please refer to the notes dictated by my nurse practitioner. FAMILY HISTORY: Please refer to the notes dictated by my nurse practitioner. PAST SURGICAL HISTORY: Please refer to the notes dictated by my nurse practitioner. MEDICATIONS: Please refer to the notes dictated by my nurse practitioner. ALLERGIES: PLEASE REFER TO THE NOTES DICTATED BY MY NURSE PRACTITIONER. PHYSICAL EXAMINATION: GENERAL: Reveals a well-developed, well-nourished gentleman, who is in no acute distress at this time. He is alert. He is oriented. He knows where he is. VITAL SIGNS: His blood pressure is 138/67. He is afebrile. Respiratory rate is 18. Heart rate is 70 and regular. O2 saturation is 96%. HEENT: Shows the head to be normocephalic and atraumatic. Carotid pulses are present. There were no significant bruits. There is no JVD. The thyroid is not enlarged. Oral mucosa was pink and moist. CHEST: Clear to auscultation. Did not show any rales, rhonchi, or wheezing. CARDIOVASCULAR: Reveals a regular rate and rhythm. Normal S1 and S2. No S3 or S4. There were no significant murmurs, heaves, thrills, bruits, or rubs. ABDOMEN: Shows obesity. Positive bowel sounds. No organomegaly or masses are noted. Femoral pulses were not palpable, but this examiner, the patient is actually in restraints. EXTREMITIES: His lower extremities show ankle edema. He also has ankle restraints on. Pedal pulses are present. NEUROLOGICAL: The patient appears to be relatively intact at this time for his strength and tone is noted. He does have some problems with remembering exactly some things, but eventually over time, he does remember the questions or the answers to the questions. IMAGING: His EKG shows normal sinus rhythm with no acute changes. He does have a right bundle-branch block. LABORATORY DATA: As per my nurse practitioner, shows WBC of 4.9, hemoglobin was 9.9 earlier and hemoglobin was 12.5 on admission. I do not see indication that the patient has had any bleeding episodes. His potassium is 3.1. Blood sugar was anywhere from 98 to 222. Cardiac enzymes are unremarkable. Creatinine is 1.13. IMPRESSION: 1. Status post neurologic event with cerebrovascular accident that is being dealt by the neurologist. He has already been seen in consultation. 2. Short run of supraventricular tachycardia. This is in a patient with no previous significant cardiac history that we are aware of, who also has a normal ejection fraction by echocardiogram. We will continue to monitor the patient. We can try low-dose beta blockers or calcium blockers in the form of diltiazem to control the heart rate. I believe he has been stable. Otherwise, there has been no further episodes. At this time, we could certainly opt not to start medications unless he has further episodes of supraventricular tachycardia. This is a short run and apparently, it was a very short episode for supraventricular tachycardia and he was asymptomatic. 3. History of diabetes, again that is being dealt with by the primary care service. The patient has been started on Coreg and hope he will tolerate the medication. He is not on any JOSE inhibitors or ARBs that I can determine, but if the patient continues to have hypertension, then this would be another medication to add, which may actually be protective in someone who has diabetes to prevent further renal damage. 4. He does have hypokalemia. This will need to be replaced. 5. History of diastolic dysfunction. At this time, overall cardiac status is stable. I would not pursue any further significant workup in the patient at this time since he has had a cerebrovascular accident and hopefully, the supraventricular tachycardia will not be a problem. We will continue the beta blockers as they are. From a cardiac standpoint, he is otherwise stable and could be transferred back to the facility tomorrow. Job ID: [id number]
[2018-03-09] MEDS: Sodium Chloride 0.45% 1,000 ML IV SCH ×2 (07:44→14:59)
[2018-03-09] MEDS: glipiZIDE 5 MG TAB PO SCH ×2 (09:01→21:26)
[2018-03-09] MEDS: Indomethacin 25 mg Capsule PO SCH ×3 (09:01→21:26)
[2018-03-09] MEDS: Clopidogrel Bisulfate 75 MG TAB PO SCH (09:02)
[2018-03-09] MEDS: Aspirin 81 mg Enteric Coated Tablet PO SCH (09:02)
[2018-03-09] MEDS: Enoxaparin Sodium 40 MG/0.4 ML SYRINGE SC SCH (09:02)
[2018-03-09] MEDS: Acetaminophen 325 MG TAB PO SCH (09:02)
[2018-03-09] MEDS: Docusate 100 MG CAP PO SCH (09:02)
[2018-03-09] MEDS: Doxycycline 100 MG CAP PO SCH ×2 (09:02→21:26)
[2018-03-09] MEDS: Furosemide 40 MG TAB PO SCH (09:02)
[2018-03-09] MEDS: Carvedilol 6.25 MG TAB PO SCH (14:44)
--- NOTE | 2018-03-09 16:52 | NM ---
NUCLEAR MEDICINE CARDIAC SPECT STRESS AND REST WITH EJECTION FRACTION AND WALL MOTION: Date: 03/09/18 HISTORY: 72-year-old male with history of nonsustained SVT, stroke, diabetes mellitus. TECHNIQUE: Patient was stressed using Adenosine sestamibi protocol. Patient was injected with 30 mCi technetium- 99m sestamibi intravenously for stress images and patient was injected with 9.0 mCi technetium-99m se stamibi intravenously for resting images. FINDINGS: Multiple SPECT images in the short axis, vertical long axis, and horizontal long axis demonstrate no scan evidence for infarct or ischemia. TID: 1.02 LHR: 0.32 EDV: 83 mL EF: 63% MYOCARDIAL PERFUSION WALL MOTION: Wall motion is normal. IMPRESSION: Normal cardiac SPECT with ejection fraction and wall motion. POS: PIO
[2018-03-09] MEDS: HumaLOG 300 UNITS/3 ML VIAL SC PRN (17:37)
--- NOTE | 2018-03-09 18:22 | PDOC.CTH ---
Cardiology Progress Note - Subjective The pt seen and examined. No overnight events. No cardiac complaints. - Objective Vital Signs Temp Pulse Resp BP BP Pulse Ox 03/09/18 15:49 98.9 F 83 16 144/76 H 97 03/09/18 14:44 149/83 H 03/09/18 11:04 98 F 77 16 159/87 H 97 03/09/18 08:00 97.6 F 72 16 155/83 H 97 Admit Weight 246 lb 11.2 oz Weight 246 lb 11.2 oz 03/08/18 03/09/18 03/10/18 06:59 06:59 06:59 Intake Total 920 720 Output Total 400 275 Balance 520 720 -275 - Physical Examination General/Neuro: alert & oriented x3 Neck: no JVD present Abdomen: soft Extremities: other: - Telemetry Telemetry Rhythm: SR - Labs Result Diagrams: 03/09/18 04:27 03/09/18 04:27 Troponin/CKMB Troponin I 0.010 ng/mL (< 0.028) 03/08/18 22:30 - Assessment/Plan 1. s/p 15 beats of NSVT on 03/08/18 - No more recurrence of NSVT; On BBlocker; Stress test today showed normal. 2. Lt posterior cerebral artery CVA - stable; managed by neurologist/PCP 3. HTN - stable 4. DM type 2 - managed by PCP 5. ISMAEL - worsened today 6. s/p Nephrostomy and MRSA infection - on IV ABXs; 7. Hyperlipidemia - on Statin MAR reviewed * From Cardiac standpoint, the pt is stable to d/c. Pt. seen and eval. by me. I agree with the A/P by the [employer]ARE[employer] INVENTORY CLERK. Chest clear RRR. Okay to d/c pt. Review of Systems - Review of Systems Constitutional: reports: no symptoms reported EENTM: reports: no symptoms reported Respiratory: reports: no symptoms reported Cardiac (ROS): reports: no symptoms reported ABD/GI: reports: no symptoms reported : reports: no symptoms reported Musculoskeletal: reports: no symptoms reported
[2018-03-09] MEDS: Atorvastatin Calcium 40 MG TAB PO SCH (21:26)
[2018-03-10] MEDS: Sodium Chloride 0.45% 1,000 ML IV SCH (02:23)
--- NOTE | 2018-03-10 05:55 | PDOC.FM ---
- Subjective Subjective: 72 yo prisoner seen at bedside this AM. Patient was cleared for discharge yesterday with discharge order, however, logistics weren't figured out at that time. Patient states his ankle pain is improved. He denies n/v/d, fevers, chills , or cough. No new complaints. - Objective Vital Signs & Weight: Vital Signs (12 hours) Temp Pulse Resp BP Pulse Ox 03/10/18 04:00 97.6 F 73 16 97 03/09/18 20:00 98.4 F 82 16 123/59 L 94 L Weight Admit Weight 111.901 kg Weight 111.901 kg I&O: 03/08/18 03/09/18 03/10/18 06:59 06:59 06:59 Intake Total 920 720 Output Total 400 275 Balance 520 720 -275 Result Diagrams: 03/10/18 05:44 03/10/18 05:44 Phys Exam - Physical Examination HEENT: moist MMs Neck: full ROM Respiratory: no wheezing, clear to auscultation bilateral Cardiovascular: RRR, no significant murmur Gastrointestinal: soft, non-tender, no distention, positive bowel sounds Musculoskeletal: no edema, pulses present Full ROM of ankle joints bilaterally Neurological: non-focal, moves all 4 limbs Psychiatric: normal affect, A&O x 3 Skin: no rash Dx/Plan (1) Acute encephalopathy Code(s): G93.40 - ENCEPHALOPATHY, UNSPECIFIED Status: Resolved (2) CVA (cerebral vascular accident) Code(s): I63.9 - CEREBRAL INFARCTION, UNSPECIFIED Status: Acute Qualifiers: CVA mechanism: thrombosis Precerebral and cerebral artery: posterior cerebral artery Laterality of affected vessel: left Qualified Code(s): I63.332 - Cerebral infarction due to thrombosis of left posterior cerebral artery (3) ISMAEL (acute kidney injury) Code(s): N17.9 - ACUTE KIDNEY FAILURE, UNSPECIFIED Status: Acute (4) Elevated bilirubin Code(s): R17 - UNSPECIFIED JAUNDICE Status: Acute (5) Gout Code(s): M10.9 - GOUT, UNSPECIFIED Status: Acute Qualifiers: Presence of tophus: without tophus (6) UTI (urinary tract infection) Status: Acute (7) V-tach Code(s): I47.2 - VENTRICULAR TACHYCARDIA Status: Acute (8) Constipation Code(s): K59.00 - CONSTIPATION, UNSPECIFIED Status: Chronic (9) Diabetes type 2, uncontrolled Code(s): E11.65 - TYPE 2 DIABETES MELLITUS WITH HYPERGLYCEMIA Status: Chronic (10) HTN (hypertension) Code(s): I10 - ESSENTIAL (PRIMARY) HYPERTENSION Status: Chronic - Plan Plan: 1. Acute L posterior cerebral artery CVA - Patient improving and appears to be back at baseline - Patient now on Plavix and Lipitor - echo shows EF of 55-60 and dCHF, otherwise no obvious source of thrombus - MRI shows finding c/w L occipital CVA with petechial hemorrhage. - Outpatient rehab planning to be completed by Case Management. - Discharged 03/10 due to successful placement. Patient has not left this facility as of yet. 2. VTAC - 15 beats of VTAC on 03/08, NSR since. - Cleared by Cardiology for discharge. 3. UTI w/R nephrostomy - secondary to previous obstructing stone. Placed on 02/13 - MRSA grown from tubes. - Clindamycin available on discharge at facility - Needs outpatient Urology evaluation. 4. ISMAEL - likely related to decreased PO intake. - Resolved - Creatinine downtrending. - Encouraged PO intake 5. HTN - home meds 6. Gout - elevated uric acid. - Improving symptoms on indomethacin 6. Hyperbilirubinemia - Possible [place], no jaundice or icterus - Recommend outpatient follow up 7. GERD - home meds 7. DM2 - home meds - low carb diet - accucheck achs - controlled BG Disposition: Patient is currently stable and will be ready to discharge pending placement. Addendum - Attending - Attending Attestation Date/Time: 03/10/18 0903 I personally evaluated the patient and discussed the management with Dr. Mullins. I agree with the History, Examination, Assessment and Plan documented above with any addition or exceptions noted below. Patient stable for discharge from neuro and cardiology standpoint. Awaiting placement at [facility].
[2018-03-10 06:15] LABS: #Eosinphils 0.6 thou/uL (0.0-0.7); #Monocytes 0.4 thou/uL (0.11-0.59); #Neutrophils 3.5 thou/uL (1.40-6.50); %Basophils 0.3 % (0.0-1.0); %Eosinophils 10.3 % (0.0-10.0); %Lymphocytes 17.9 % (21.0-51.0); %Neutrophils 64.5 % (42.0-75.0); Hemoglobin 9.9 g/dL (14.0-18.0); Mean Corpuscular HGB CONC 32.8 g/dL (32.0-36.0); Mean Corpuscular Hemoglobin 27.9 pg (27.0-31.0); Mean Platelet Volume 9.3 fL (7.4-10.4); Platelet Count 164 thou/uL (130-400); Red Blood Cell (RBC) Count 3.56 mill/uL (4.70-6.10); White Blood Cell (WBC) Count 5.4 thou/uL (4.8-10.8)
[2018-03-10 06:31] LABS: Anion Gap 13 mmol/L (10-20); BUN (Urea Nitrogen) 33 mg/dL (8.4-25.7); Calc. Creatinine Clearance 89 mL/min (70-130); Calcium 8.9 mg/dL (7.8-10.44); Carbon Dioxide 24 mmol/L (23-31); Chloride 110 mmol/L (98-107); Estimated GFR-MDRD 59; Glucose 89 mg/dL (83-110); Potassium 3.9 mmol/L (3.5-5.1); Sodium 143 mmol/L (136-145)
[2018-03-10] MEDS ORDERED: Losartan 25 MG TAB PO SCH (09:00)
[2018-03-10] MEDS: Enoxaparin Sodium 40 MG/0.4 ML SYRINGE SC SCH (10:17)
[2018-03-10] MEDS: Aspirin 81 mg Enteric Coated Tablet PO SCH (10:19)
[2018-03-10] MEDS: Carvedilol 6.25 MG TAB PO SCH (10:19)
[2018-03-10] MEDS: Acetaminophen 325 MG TAB PO SCH (10:20)
[2018-03-10] MEDS: Docusate 100 MG CAP PO SCH (10:20)
[2018-03-10] MEDS: Clopidogrel Bisulfate 75 MG TAB PO SCH (10:21)
[2018-03-10] MEDS: glipiZIDE 5 MG TAB PO SCH (10:21)
[2018-03-10] MEDS: Indomethacin 25 mg Capsule PO SCH (10:21)
[2018-03-10] MEDS: Furosemide 40 MG TAB PO SCH (10:21)
[2018-03-10] MEDS: Doxycycline 100 MG CAP PO SCH (10:22)
[2018-03-10 12:05] VITALS: BP 152/81; TEMP 98.1
--- NOTE | 2018-03-11 10:06 | DIS ---
DATE OF ADMISSION: 03/06/2018 DATE OF DISCHARGE: 03/10/2018 RESIDENT: Dr. Mullins. ADMITTING ATTENDING: Fred Pierre MD. DISCHARGE ATTENDING: Devyn Apple MD. CONSULTATIONS: Dr. Bach with Cardiology, Dr. Rondon with Neurology, Physical Therapy, Stroke Team, and Case Management. PROCEDURES: On 03/06/2018, the patient underwent a brain CT that showed no acute intracranial bleed or mass effect. Large low attenuation air in the left occipital lobe, this may represent an old infarct and a subacute infarct may also be considered and no definitive acute infarct by CT. On 03/06/2018, the patient underwent a chest x-ray that showed no evidence of acute cardiopulmonary process. On 03/06/2018, the patient underwent a brain MRA that showed occlusion of the P3 and P4 segments in the left posterior cerebral artery presumably due to thrombosis, which is apparently the cause of the left occipital infarction. Attenuation of the signal of a segment of intracranial left vertebral artery. It is uncertain whether this represents partial occlusion and narrowing due to thrombosis or is atherosclerotic stenosis or artifact. On 03/06/2018, the patient underwent a head MRI with neck MRA that showed no significant carotid or vertebral anomaly in the neck. On 03/06/2018, the patient underwent an echocardiogram that showed ejection fraction visually estimated at 55% to 60%, mildly dilated left atrium, mildly enlarged right atrium, left ventricular size is normal, diastolic dysfunction, mild tricuspid regurgitation, small pericardial effusion. No thrombosis is noted in the cardiac chambers. On 03/07/2018, the patient underwent a brain MRI that showed findings compatible with recent infarction involving the left occipital lobe, left corpus callosum, left thalamus, and left central semiovale as described above. Signal alteration involving the occipital component of this infarct demonstrates signal loss on gradient echo images suggesting associated petechial hemorrhages. On 03/09/2018, the patient underwent a stress test and nuclear medicine test that showed normal cardiac SPECT with ejection fraction and wall motion. EF was represented at 63%. PRIMARY DIAGNOSES: 1. Acute left posterior cerebral artery cerebrovascular accident. 2. Acute encephalopathy, resolved 3. Acute kidney injury, resolved 4. Elevated bilirubin. 5. Gout. 6. MRSA positive Urinary tract infection with right nephrostomy. 7. Uncontrolled type 2 diabetes. 8. Hypertension. DISCHARGE MEDICATIONS: 1. Multivitamin one tablet p.o. daily. 2. Glipizide 5 mg p.o. b.i.d. 3. Furosemide 40 mg p.o. daily. 4. Keflex 500 mg p.o. t.i.d. 5. Zinc 50 mg p.o. b.i.d. 6. Carvedilol 12.5 mg p.o. daily. 7. Ascorbic acid 1000 mg p.o. b.i.d. 8. Zantac 150 mg p.o. daily. 9. Colace 100 mg p.o. daily. 10. Acetaminophen 650 mg p.o. daily. 11. Clindamycin 300 mg p.o. q.6 hours for 7 days. 12. Aspirin 81 mg p.o. daily. 13. Atorvastatin 40 mg p.o. at bedtime. 14. Calcium carbonate 1000 mg p.o. q.4 hours p.r.n. HISTORY OF PRESENT ILLNESS AND HOSPITAL COURSE: The patient is a 72-year-old male,who presents from skilled nursing. The patient was found in the shower and was refusing to get up off the floor and having word finding difficulties and was confused. The patient was recently admitted for sepsis secondary to UTI and had a right nephrostomy tube placed. Speech is clear, but continued to have word finding difficulty. The patient is overall poor historian, and he was recently refusing to take his Keflex for his UTI. During the hospitalization, the patient underwent multiple studies including a brain CT, a brain MRA, and brain MRI that all consistently showed evidence of a recent left occipital lobe infarction with left corpus callosum, left thalamus, and left central semiovale infarction as well. The patient was also seen by Cardiology and Dr. Bach because of a short run of supraventricular tachycardiac while he was in hospital. She decided for no medical management or further workup at that time. The patient did undergo a stress test and nuclear testing that showed no reversible ischemia and otherwise unremarkable. Dr. Rondon with Neurology was consulted for evaluation as well. His impression was left occipital lobe stroke resulting in right homonymous field defect and some memory difficulty secondary to primary thrombosis. His plan was to continue aspirin, low-dose statin, and diabetic management as an outpatient. The patient also had MRSA growing out of his urine nephrostomy tube and so he need to have MRSA coverage, and so upon discharge, he was to be discharged on doxycycline per sensitivity grid; however, the facility that he will be returning to did not have doxycycline and so clindamycin was started for his outpatient treatment. The patient otherwise had notable lab values of a white blood cell count of 10.0 on the day of admission that trended to 5.4 on the day of discharge. Creatinine that was initially elevated at 1.35 had seemed to return to baseline 1.21 with intravenous fluids and a uric acid level of 7.3. Again, the patient had blood cultures that were negative for growth at 48 hours; however, did have methicillin-resistant Staphylococcus aureus present in the urine bacterial culture from the nephrostomy tube. The patient did complain of some bilateral ankle pain likely due to gout with improvement with indomethacin; however, he will need to have some long-term followup with this as well as possible long-term preventive medication as an outpatient. Otherwise, the patient tolerated the hospitalization well and will be discharged in appropriate condition. DISPOSITION: Stable. DISCHARGE INSTRUCTIONS: 1. Location: He will be [facility] back to correctional facility. 2. Diet: As tolerated and diabetic diet. 3. Activity: As tolerated with no restrictions. 4. Followup: Will be with Urology for his nephrostomy tube placement as well as follow up with the primary care physician that he will be seeing while in the correctional facility. Job ID: [id number] [id number]
== END 2018-03-10 13:13 | DRG 64 ==
LOC: ERS 01:45 → 2SE 05:09
PROVIDERS: ADMIT Family Medicine; ATTEND Family Medicine
PROC: 3E0234Z Introduction of Serum, Toxoid and Vaccine into Muscle, Percutaneous Approach (ICD-10-PCS; principal; 2018-03-06)
DX: I63.332 Cerebral infarction due to thrombosis of left posterior cerebral artery (principal); G93.41 Metabolic encephalopathy; N39.0 Urinary tract infection, site not specified; N17.9 Acute kidney failure, unspecified; T83.512A Infection and inflammatory reaction due to nephrostomy catheter, initial encounter; I47.1 Supraventricular tachycardia; I50.32 Chronic diastolic (congestive) heart failure; B95.62 Methicillin resistant Staphylococcus aureus infection as the cause of diseases classified elsewhere; E11.65 Type 2 diabetes mellitus with hyperglycemia; Z79.84 Long term (current) use of oral hypoglycemic drugs; Z79.82 Long term (current) use of aspirin; I45.10 Unspecified right bundle-branch block; E87.6 Hypokalemia; H53.8 Other visual disturbances; I36.1 Nonrheumatic tricuspid (valve) insufficiency; I11.0 Hypertensive heart disease with heart failure; I48.91 Unspecified atrial fibrillation; K59.00 Constipation, unspecified; K21.9 Gastro-esophageal reflux disease without esophagitis; E80.6 Other disorders of bilirubin metabolism; M1A.9XX1 Chronic gout, unspecified, with tophus (tophi); Z23 Encounter for immunization
CPT/HCPCS: 36415; 36416; 70450; 70544; 70547; 70551; 71045; 78452; 80048; 80053; 80061; 81003; 81015; 82247; 83605; 83735; 84145; 84484; 84550; 85025; 87040; 87070; 87077; 87086; 87186; 87205; 90471; 90662; 93017; 93306; 96361; 96374; A9500; G0008; G8978-GP-CM; G8979-GP-CK; G8987-GO-CM; G8988-GO-CJ; G9162-GN-CJ; G9163-GN-CI; J0153; J0696; J1580; J1650; J3370; J7050